=== PATIENT | female | born 1935 | race Caucasian/White ===

== ENCOUNTER 2016-08-14 19:35 | Emergency (ER) | payer OTHER ==
[~2016-08-14] VITALS: Ht 149.9 cm; Wt 73.0 kg
[~2016-08-14 19:35] MED LIST: CEPH-443 PO
[2016-08-14 19:54] VITALS: Ht 149.9 cm; Wt 73.0 kg
[2016-08-14] MEDS ORDERED: SOD CHLORIDE 0.9% 500 ML IV STA (21:09)
[2016-08-14 21:58] LABS: ADD SCAN DIFF NO
[2016-08-14 22:06] LABS: BASOPHILS % 0.7 % (0.0-2.0); EOSINOPHILS # 0.1 10^3/ul (0.0-0.5); HEMATOCRIT 40.5 % (37.0-47.0); HEMOGLOBIN 13.1 g/dl (12.0-16.0); LYMPHOCYTES # 1.8 10^3/ul (0.8-2.9); LYMPHOCYTES % 28.6 % (15.0-51.0); MEAN CORPUSCULAR HEMOGLOBIN 29.8 pg (29.0-33.0); MEAN CORPUSCULAR HGB CONC 32.3 g/dl (32.0-37.0); MEAN CORPUSCULAR VOLUME 92.3 fl (82.0-101.0); MEAN PLATELET VOLUME 10.8 fl (7.4-10.4); MONOCYTE # 0.7 10^3/ul (0.3-0.9); MONOCYTES % 11.8 % (0.0-11.0); NEUTROPHIL # 3.5 10^3/ul (1.6-7.5); NEUTROPHILS % 56.7 % (39.0-77.0); PLATELET COUNT 262 10^3/UL (140-415); RED BLOOD COUNT 4.39 10^6/ul (4.20-5.40); RED CELL DISTRIBUTION WIDTH 13.3 % (11.5-14.5); WHITE BLOOD COUNT 6.1 10^3/ul (4.8-10.8)
[2016-08-14 22:27] LABS: ALBUMIN 4.2 g/dl (3.3-4.9); ALBUMIN/GLOBULIN RATIO 1.35; CALCIUM 9.8 mg/dl (8.4-10.2); CREATININE 0.63 mg/dl (0.44-1.00); POTASSIUM 3.7 mmol/L (3.5-5.1); TOTAL PROTEIN 7.3 g/dl (6.1-8.1)
[2016-08-14] MEDS ORDERED: SOD CHLORIDE 0.9% 100 ML ONE (22:35)
[2016-08-14] MEDS ORDERED: IODIXANOL LOCM 100 ML BTL ONE (22:35)
--- NOTE | 2016-08-14 23:37 | RADRPT ---
PROCEDURE: CT facial bones CLINICAL INDICATION: Facial swelling on the right. TECHNIQUE: IV contrast enhanced CT of the facial bones was performed utilizing high-resolution axi al images. Axial, sagittal and coronal reformatted images are available for interpretation. The CT DIvol is 53.75 mGy and the DLP is 1038.13 mGy-cm. 100 cc Isovue 300 nonionic IV contrast were employ ed. COMPARISON: None. FINDINGS: 10 x 9 x 7 mm abscess in the deep central right parotid gland. Mild edematous and enlarged right par otid gland. No evident sialolith. No enhancing mass identified. The osseous structures are intact with no evidence of fracture. The orbits, as visualized, appear i ntact. The overlying soft tissues are grossly unremarkable. Mild mucous retention in the right max illary sinus. Otherwise, the visualized paranasal sinuses are clear. Partially visualized brain with changes of chronic atrophy and small vessel disease. IMPRESSION: 10 mm abscess in the deep central right parotid gland, with mild right parotid gland edema and swell ing. RPTAT: [facility] Physician Kwabena Date Time Electronically viewed and signed by Physician Kwabena on 08/14/2016 23:37 RS/
[2016-08-15] MEDS ORDERED: AMPICILLIN/SULB 3 GM/NS (PMX) 100 ML IVPB ONE (01:00)
[2016-08-15] MEDS ORDERED: AMOX1TAB10 PO (01:05)
--- NOTE | 2016-08-15 01:08 | ERD ---
ER Documentation Chief Complaint Date/Time DATE: 08/15/16 TIME: 01:06 Chief Complaint Right jaw pain and swelling x4 days, HPI Patient is a pleasant 81-year-old female who presents with right jaw and pain and swelling for the past 4 days. Denies fever. Denies any ear pain. Denies any difficulty breathing or swallowing. Denies cough or sore throat. Denies any chest pain or shortness of breath. She is tolerating oral intake. She saw dentist and dentist told her there is nothing wrong with her teeth so she does not believe it is a dental infection. She takes Tylenol at home which alleviates her symptoms and she states the swelling has gone down since this first started 4 days ago ROS All systems reviewed and are negative except as per history of present illness. Medications Home Meds Active Scripts Amoxicillin/Potassium Clav (Amox-Clav 875-125 mg Tablet) 875-125 mg Tab, 1 TAB PO BID for 10 Days, #20 TAB Prov:YUE VINCENT PA-C 08/15/16 Cephalexin* (Keflex*) 500 Mg Capsule, 500 MG PO QID for 7 Days, CAP Prov:ANTONI POWERS PA-C 12/07/15 Allergies Allergies: Coded Allergies: No Known Allergy (Unverified , 08/14/16) PMhx/Soc History of Surgery: Yes (HYSTERECTOMY 2012) Anesthesia Reaction: No Hx Neurological Disorder: No Hx Respiratory Disorders: No Hx Cardiac Disorders: Yes (HTN, CHF) Hx Psychiatric Problems: No Hx Miscellaneous Medical Probl: Yes (DM) Hx Alcohol Use: No Hx Substance Use: No Hx Tobacco Use: No Smoking Status: Never smoker FmHx Family History: No diabetes Physical Exam Vitals Vital Signs Date Time Temp Pulse Resp B/P Pulse Ox O2 Delivery O2 Flow Rate FiO2 08/14/16 19:54 99.1 94 20 178/79 97 Physical Exam General: well developed, well nourished, alert, nontoxic, no distress Head: normocephalic, atraumatic Neck: Supple, nontender, no lymphadenopathy, no midline tenderness Ears: no tenderness over mastoids bilaterally, TMs nonerythematous, no exudates in canal Oropharynx: no tonsilar erythema or edema, uvula midline, no exudates, no kissing tonsils, no drooling, mild tenderness over the right parotid Respiratory: Clear to auscaultation bilaterally, speaks in full sentences, no use of accesory muscles or labored breathing, no rales, ronchi, or wheezing Cardiovascular: RRR, No murmurs GI: soft, non tender, non distended, negative murphys sign, negative mcburneys point tenderness, no cva tenderness bilaterally, no rebound or guarding Result Diagram: 08/14/16211708/14/162117 Results 24 hrs Laboratory Tests Test 08/14/16 21:18 White Blood Count 6.110^3/ul Red Blood Count 4.3910^6/ul Hemoglobin 13.1g/dl Hematocrit 40.5% Mean Corpuscular Volume 92.3fl Mean Corpuscular Hemoglobin 29.8pg Mean Corpuscular Hemoglobin Concent 32.3g/dl Red Cell Distribution Width 13.3% Platelet Count 74540^3/UL Mean Platelet Volume 10.8fl Neutrophils % 56.7% Lymphocytes % 28.6% Monocytes % 11.8% Eosinophils % 2.0% Basophils % 0.7% Nucleated Red Blood Cells % 0.0/100WBC Neutrophils # 3.510^3/ul Lymphocytes # 1.810^3/ul Monocytes # 0.710^3/ul Eosinophils # 0.110^3/ul Basophils # 0.010^3/ul Nucleated Red Blood Cells # 0.010^3/ul Sodium Level 142mmol/L Potassium Level 3.7mmol/L Chloride Level 104mmol/L Carbon Dioxide Level 31mmol/L Anion Gap 11 Blood Urea Nitrogen 25mg/dl Creatinine 0.63mg/dl Glucose Level 164mg/dl Calcium Level 9.8mg/dl Total Bilirubin 0.0mg/dl Direct Bilirubin 0.00mg/dl Indirect Bilirubin 0.0mg/dl Aspartate Amino Transf (AST/SGOT) 15IU/L Alanine Aminotransferase (ALT/SGPT) 24IU/L Alkaline Phosphatase 85IU/L Total Protein 7.3g/dl Albumin 4.2g/dl Globulin 3.10g/dl Albumin/Globulin Ratio 1.35 Current Medications Medications (Trade) Dose Ordered Sig/Millie Route PRN Reason Start Time Stop Time Status Last Admin Dose Admin Sodium Chloride (NS) 500 ml @ 500 mls/hr Q1H STAT IV 08/14/16 21:09 08/14/16 22:08 DC 08/14/16 21:24 IV Flush 10 ml 10 ml STK-MED ONCE .ROUTE 08/14/16 22:35 08/14/16 22:36 DC 08/14/16 22:53 Sodium Chloride (NS) 100 ml @ ud STK-MED ONCE .ROUTE 08/14/16 22:35 08/14/16 22:36 DC 08/14/16 22:53 Iodixanol 100 ml 100 ml STK-MED ONCE .ROUTE 08/14/16 22:35 08/14/16 22:36 DC 08/14/16 22:53 Ampicillin Sodium/ Sulbactam Sodium (Unasyn 3gm/NS (Pmx)) 100 ml @ 100 mls/hr ONCE ONCE IVPB 08/15/16 01:00 08/15/16 01:59 08/15/16 01:01 Procedures/MDM Patient presents with right jaw and facial pain and swelling. Low-grade temperature 99.1. CBC and chemistry panel were unremarkable. CT scan of the facial bones with contrast show a 10 mm parotid gland abscess. I spoke to my supervising patient Dr. Rodriguez and we attempted to call ENT however we paged him several times and after several hours there was no response back. Therefore we decided to give the patient a dose of Unasyn here in the emergency room through her IV and she was discharged with Augmentin with instructions to return tomorrow for a follow-up examination. She is very well-appearing, nontoxic, not ill-appearing, in no distress. Recommended this patient follow up with her primary care doctor within 48 hours or return to the emergency room for any worsening of symptoms. However this time I do believe there is suitable for outpatient management. I answered all their questions and they agreed with the plan and were discharged home. Departure Diagnosis: Primary Impression: Parotid abscess Condition: Stable Patient Instructions: Abscess, Antiobiotic Treatment Only Additional Instructions: Llame al doctor ABNER y alfreda hi CATARINO PARA DENTRO DE 1-2 FISH.Dgale a la secretaria que nosotros le instruimos hacer esta catarino.Avise o llame si lora condicin se empeora antes de la catarino. Regresa aqui si peor o no mejor. Llame a lora doctor ABNER y alfreda hi catarino para el mismo da.Dle a la secretaria que le instruimos hacer esta catarino. Llame si lora condicin se empeora antes de la catarino. YUE VINCENT PA-C August 15, 2016 01:08
[2016-08-15 02:10] VITALS: BP 125/69; PULSE 80; RESP 20; TEMP 98
== END 2016-08-15 02:12 | disposition home or self-care (01) ==
LOC: FTE 19:35
DX: K11.3 Abscess of salivary gland (principal); I10 Essential (primary) hypertension; I50.9 Heart failure, unspecified; E11.9 Type 2 diabetes mellitus without complications
CPT/HCPCS: 70486; 80053; 85025; 96374; J0295; J7040; Q9967; Z7502; Z7610

== ENCOUNTER 2017-01-23 11:13 | Emergency (ER) | payer OTHER ==
[~2017-01-23] VITALS: Ht 157.5 cm; Wt 78.0 kg
[~2017-01-23 11:13] MED LIST changes: +AMOX1TAB10 PO
[2017-01-23 11:19] VITALS: Ht 157.5 cm; Wt 78.0 kg
--- NOTE | 2017-01-23 12:31 | ERD ---
ER Documentation Chief Complaint Chief Complaint COUGH X 1 MOS HPI 4 weeks of a cough. The cough is dry nonproductive but persistent. She denies any fevers or chills. She does describe a very mild frontal headache that is dull and throbbing approximately 1 out of 10. She denies any unintentional weight loss, no hemoptysis. She is not a smoker. She was seen by primary care physician who told her this was seasonal allergies and tried loratadine without improvement. The patient does take an CODY inhibitor for blood pressure. She denies any chest pain, exertional symptoms, pleuritic pain or calf swelling. ROS All systems reviewed and are negative except as per history of present illness. Medications Home Meds Active Scripts Albuterol Sulfate* (Ventolin HFA*) 18 Gm Hfa.aer.ad, 2 PUFF INHALATION Q4H, #1 INHALER Prov:MC BRICE MD 01/23/17 Amoxicillin/Potassium Clav (Amox-Clav 875-125 mg Tablet) 875-125 mg Tab, 1 TAB PO BID for 10 Days, #20 TAB Prov:YUE VINCENT PA-C 08/15/16 Cephalexin* (Keflex*) 500 Mg Capsule, 500 MG PO QID for 7 Days, CAP Prov:ANTONI POWERS PA-C 12/07/15 Allergies Allergies: Coded Allergies: No Known Allergy (Unverified , 08/14/16) PMhx/Soc History of Surgery: Yes (HYSTERECTOMY 2012) Anesthesia Reaction: No Hx Neurological Disorder: No Hx Respiratory Disorders: No Hx Cardiac Disorders: Yes (HTN, CHF) Hx Psychiatric Problems: No Hx Miscellaneous Medical Probl: Yes (DM) Hx Alcohol Use: No Hx Substance Use: No Hx Tobacco Use: No FmHx Family History: No diabetes Physical Exam Vitals Vital Signs Date Time Temp Pulse Resp B/P Pulse Ox O2 Delivery O2 Flow Rate FiO2 01/23/17 11:19 98.1 85 18 138/70 95 Physical Exam General: Well developed, well nourished, no acute distress Head: Normocephalic, atraumatic. Eyes: Pupils equally reactive, EOM intact ENT: Moist mucous membranes Neck: Supple, no lymphadenopathy Respiratory: Lungs clear bilaterally, no distress Cardiovascular: RRR, no murmurs, rubs, or gallops Abdominal: Soft, non-tender, non-distended, no peritoneal signs : Deferred MSK: No edema, no unilateral swelling, 5/5 strength Neurologic: Alert and oriented, moving all extremities, normal speech, no focal weakness, no cerebellar signs Skin: No rash Psych: Normal mood Result Diagram: 01/23/17 1022 01/23/17 1022 Results 24 hrs Laboratory Tests Test 01/23/17 10:22 White Blood Count 6.010^3/ul Red Blood Count 4.4210^6/ul Hemoglobin 13.3g/dl Hematocrit 40.2% Mean Corpuscular Volume 91.0fl Mean Corpuscular Hemoglobin 30.1pg Mean Corpuscular Hemoglobin Concent 33.1g/dl Red Cell Distribution Width 13.6% Platelet Count 02431^3/UL Mean Platelet Volume 10.3fl Neutrophils % 60.4% Lymphocytes % 20.4% Monocytes % 13.7% Eosinophils % 4.5% Basophils % 0.8% Nucleated Red Blood Cells % 0.0/100WBC Neutrophils # 3.610^3/ul Lymphocytes # 1.210^3/ul Monocytes # 0.810^3/ul Eosinophils # 0.310^3/ul Basophils # 0.110^3/ul Nucleated Red Blood Cells # 0.010^3/ul Sodium Level 142mmol/L Potassium Level 3.9mmol/L Chloride Level 103mmol/L Carbon Dioxide Level 28mmol/L Anion Gap 15 Blood Urea Nitrogen 14mg/dl Creatinine 0.53mg/dl Glucose Level 136mg/dl Calcium Level 9.4mg/dl Procedures/MDM EKG, MONITORS, & DIAGNOSTIC IMAGING: Chest x-ray: I reviewed and interpreted a 2 view of the chest Mediastinum: No enlargement Cardiac silhouette: No cardiomegaly Airspace: Clear lung salazar bilaterally without evidence of pneumothorax Bones: No evidence of fracture LAB INTERPRETATION: No leukocytosis or left shift, normal electrolytes MEDICAL DECISION MAKING: The patient presents with 4 weeks of persistent, nonproductive cough. She is otherwise well-appearing without systemic signs or symptoms concerning for infectious process. Given the patient's age this chronic cough could represent malignancy, chest x-ray would be indicated. However, the patient has no significant risk factors for lung cancer. She has no unintentional weight loss. She denies any exertional symptoms and does not exhibit any signs or symptoms concerning for cardiogenic or pulmonary process such as pulmonary embolism or acute coronary syndrome. The patient does take an CODY inhibitor and there is a suspicion that the patient 's cough could be related to the CODY inhibitor. If her laboratory testing and diagnostic imaging is unrevealing then I would recommend discontinuing this medication, following up with primary care physician to see if this resolves her symptoms. At this point I will check basic blood work as well as a chest x-ray. The patient is otherwise extremely well-appearing in the emergency room. ER COURSE: Patient continues to be well-appearing in the emergency department. Her laboratory testing and diagnostic imaging is unrevealing. A trial of CODY inhibitor discontinuation would be reasonable. Try an inhaler and recommended the patient follow-up with [facility] physician as soon as possible. I kept the patient and/or family informed of laboratory and diagnostic imaging results throughout the emergency room course. DISPOSITION PLAN: We discussed follow up with the patient's primary care doctor within 24 to 48 hours as needed. We also discussed return to the emergency room for worsening symptoms or worsening condition. Outpatient referral: [None required] Discharge Medications: Albuterol Departure Diagnosis: Primary Impression: Cough Condition: Stable MC BRICE MD Jan 23, 2017 12:31
[2017-01-23 12:44] LABS: BASOPHIL # 0.1 10^3/ul (0.0-0.1); BASOPHILS % 0.8 % (0.0-2.0); EOSINOPHILS # 0.3 10^3/ul (0.0-0.5); EOSINOPHILS % 4.5 % (0.0-7.0); HEMATOCRIT 40.2 % (37.0-47.0); HEMOGLOBIN 13.3 g/dl (12.0-16.0); LYMPHOCYTES # 1.2 10^3/ul (0.8-2.9); LYMPHOCYTES % 20.4 % (15.0-51.0); MEAN CORPUSCULAR HEMOGLOBIN 30.1 pg (29.0-33.0); MEAN CORPUSCULAR HGB CONC 33.1 g/dl (32.0-37.0); MEAN PLATELET VOLUME 10.3 fl (7.4-10.4); MONOCYTE # 0.8 10^3/ul (0.3-0.9); MONOCYTES % 13.7 % (0.0-11.0); NEUTROPHIL # 3.6 10^3/ul (1.6-7.5); NEUTROPHILS % 60.4 % (39.0-77.0); PLATELET COUNT 186 10^3/UL (140-415); RED BLOOD COUNT 4.42 10^6/ul (4.20-5.40); RED CELL DISTRIBUTION WIDTH 13.6 % (11.5-14.5)
[2017-01-23 13:00] LABS: CALCIUM 9.4 mg/dl (8.4-10.2); CREATININE 0.53 mg/dl (0.44-1.00); POTASSIUM 3.9 mmol/L (3.5-5.1)
--- NOTE | 2017-01-23 13:18 | RADRPT ---
PROCEDURE: Chest x-ray CLINICAL INDICATION: Cough TECHNIQUE: Chest 2 views COMPARISON: None FINDINGS: The heart is normal in size. The pulmonary vessels are normal in caliber. The lungs are clear. Th e costophrenic angles are sharp. The visualized bony thorax is unremarkable. IMPRESSION: No acute cardiopulmonary disease. Mild atherosclerotic aortic calcification RPTAT: HH .Andrew Rogel MD, Date Time Electronically viewed and signed by .Andrew Rogel MD, MD on 01/23/2017 13:18 .W/
[2017-01-23] MEDS ORDERED: ALBU18HF INHALATION (13:31)
[2017-01-23 13:48] VITALS: BP 125/68; PULSE 79; RESP 18; TEMP 97.9
== END 2017-01-23 13:49 | disposition home or self-care (01) ==
LOC: E/R 11:13
DX: R05 Cough (principal); I10 Essential (primary) hypertension; I50.9 Heart failure, unspecified; E11.9 Type 2 diabetes mellitus without complications
CPT/HCPCS: 71020; 80048; 85025; Z7502

== ENCOUNTER 2017-11-02 23:15 | Emergency (ER) | END 2017-11-03 05:10 | disposition home or self-care (01) ==